=== PATIENT | female | born 1965 | race African-American/Black ===

== ENCOUNTER 2025-05-28 13:56 | Outpatient (AMB) | payer OTHER, SELFPAY ==
--- NOTE | 2025-05-28 13:59 | A.OFFVIS_ITS ---
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 Allergies atenolol Allergy (Unknown, Verified 05/28/25 14:06) Unknown erythromycin base Allergy (Unknown, Verified 05/28/25 14:06) Unknown morphine Allergy (Unknown, Verified 05/28/25 14:06) Unknown naproxen (From Naprosyn) Allergy (Unknown, Verified 05/28/25 14:06) Unknown Medication List - Last Reconciled 05/28/25 by Nakita Rogers CNP acetaminophen-codeine 300-30 mg 1 - 2 tabs PO Q8H PRN 30 days amitriptyline 100 mg PO BEDTIME erenumab-aooe (Aimovig Autoinjector) 70 mg subcut QMONTH folic acid 1 mg PO DAILY metoprolol tartrate 25 mg PO BID omeprazole 20 mg PO BID oxcarbazepine 600 mg PO BID quetiapine (Seroquel) 400 mg PO BEDTIME temazepam 30 mg PO BEDTIME PRN topiramate 200 mg PO BID trazodone 200 mg PO BEDTIME warfarin 2.5 mg PO DAILY HPI Comments Details: Tingling in feet up to ankles bilaterally with burning-type pain since 01/2025. Her sugar is not under control. Aimovig was helping with migraines. Headaches were down to about 2x/week. They were less severe and did not last as long. Tylenol #3 as needed helped. Numbness and tingling in feet up to ankles bilaterally with purning-type pain since 01/2025 was unchanged. Fasting blood sugar could range between 60s-200s. No falls. Sleep was not so good, trouble falling and staying asleep. Sleep was sometimes disrupted by pain in feet. Mood was okay. Previously, she was getting headache about 3-4x/ week with pressure behind eyes for 2-3 hrs. Headaches were associated with photophobia, sonophobia, nausea, and sometimes vomiting. Using Tylenol #3 as needed which helpe within 60-90 minutes. No seizures. She has a history of depression and psychiatric problems as well as migraines and some dependence on pain medications. [facility] Medical History (Updated 05/28/25 @ 14:03 by Nakita Rogers CNP) Diabetic peripheral neuropathy Hypertension JULISSA on CPAP Pulmonary embolism Neuropathy JULISSA (obstructive sleep apnea) Depression Migraine Review of Systems Const Denies chills, Denies daytime sleepiness, Reports difficulty sleeping, Denies fatigue, Denies fever(s), Denies frequent falls, Reports headache(s), Denies increased appetite, Denies poor appetite, Denies snoring, Denies weakness, Denies weight gain and Denies weight loss Eyes Denies loss of vision ENT Denies vertigo, Denies dizziness, Reports headache(s) and Denies neck pain Card Denies chest pain at rest, Denies chest pain with activity, Denies syncope, Denies leg edema, Denies palpitations, Denies dyspnea and Denies dyspnea on ex ertion Resp Denies cough, Denies dyspnea, Denies dyspnea on exertion and Denies snoring GI Denies abdominal pain, Denies constipation, Denies heartburn, Denies diarrhea and Denies nausea Denies urinary frequency, Denies urinary incontinence and Denies urinary urgency Musc Denies abnormal gait, Denies back pain, Denies myalgias, Denies arthralgias, Denies neck pain, Reports numbness and Reports tingling Neuro Denies abnormal gait, Denies vertigo, Denies dizziness, Denies syncope, Denies frequent falls, Reports headache(s), Denies lack of coordination, Denies loss of vision, Denies memory loss, Reports numbness, Denies Other visual disturbances, Denies restless legs, Denies seizure-like activity, Reports tingling, Denies paresthesias, Denies tremor(s) and Denies weakness Psych Denies anxiety, Reports depression, Denies auditory hallucinations, Denies memory loss and Denies visual hallucinations Endo Denies fatigue and Denies palpitations Physical Exam Const Other: General Appearance:? normal, in no acute distress. Heart:? S1, S2 normal, no murmurs. Lungs:? clear anteriorly and posteriorly. Musculoskeletal:? normal. Extremities:? no edema. Psych:? alert, oriented, cognitive function intact, cooperative with exam. 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 KJ, AJ 0-1+ Mental Status: alert and oriented X 3. Normal attention, orientation, memory, and affect. Cranial Nerves: Pupils are equal, round, and reactive to light. External ocular muscles are intact. Visual nguyen are full, no ptosis. Face is symmetrical, no facial weakness or droop. Facial sensations are normal. Tongue protrudes in midline. Palate elevates symmetrically. Shoulder shrugging is normal Motor Examination: As above, otherwise normal muscle tone, bulk and strength. No atrophy or fasciculations. No drift of the extended upper extremities. DTR 2+. Plantars are flexor. Sensory Exam: Normal light touch, temperature, pinprick, vibration, and joint- position sensations. Rhomberg sign is absent. Coordination: No ataxia. No titubation. Gait Exam: Within normal limits. Cerebellar Signs: [id number] is okay. Extrapyramidal System: No tremor, rigidity with normal facial expressions. No bradykinesia. No bradyphrenia. Normal arm swing and posture. No propulsion or retropulsion. Speech: Normal. No dysphasia or dysarthria. Results Reviewed Results Reviewed: 03/12/25 NCV/EMG LE Sensory greater than motor axonal neuropathy, significantly worse compared to the study done in 2013. EMG in the left L4-S1 innervated muscles is consistent with chronic neuropathic changes. Assessment & Plan Assessment & Plan (1) Migraine: Code(s): G43.909 - Migraine, unspecified, not intractable, without status migrainosus Category: Medical Qualifiers: Migraine type: unspecified Status migrainosus presence: without status migrainosus Intractability: not intractable Qualified Code(s): G43.909 - Migraine, unspecified, not intractable, without status migrainosus Plan: Continue Aimovig 70mg/mL 1mL subcutaneous monthly. Continue topiramate 100mg 2 tablets twice a day. Continue amitriptyline 100mg 1 tablet at bedtime. Continue acetaminophen-codeine #3 300-30mg 1-2 tablets as needed q8h for headache #30 for 30 days (2) Diabetic peripheral neuropathy: Code(s): E11.42 - Type 2 diabetes mellitus with diabetic polyneuropathy Category: Medical Plan: NCV/EMG results reviewed. Start gabapentin 300mg 1 capsule at bedtime, use/side effects reviewed. Control blood sugar, stay physically active. Medications: New gabapentin 300 mg PO BEDTIME 30 caps 2RF 30 days amitriptyline 100 mg PO BEDTIME 90 tabs 1RF 90 days erenumab-aooe (Aimovig Autoinjector) 70 mg subcut QMONTH 1 mL 5RF 30 days Coding Level of Care Code Est Pt Level 4 (27804) Diagnoses Migraine without status migrainosus, not intractable, unspecified migraine type G43.909 Migraine type: unspecified Status migrainosus presence: without status migrainosus Intractability: not intractable Diabetic peripheral neuropathy E11.42
--- OUTSIDE RECORDS SUMMARY | 2025-05-28 14:20 | XMS_ITS | Continuity of Care Document ---
Author Organization [facility] Address [address] [place] [address] Insurance Providers Payer Plan Claims Address Claims Phone Policy Number Group Number Relation Employer Guarantor Name Guarantor Guarantor Address Guarantor Phone MEDIC ARE [employer] [address], [place] [address] tel:[phone] Self Magdalena Mejia [address] [place] [address] [facility] [address], [place] [address] [id number] Self Magdalena Mejia [address] [place] [address] COMMO [facility] [employer] [facility] MEDIC ARE [address], [place] [address] ICO [id number] Self Magdalena Mejia [address] [place] [address] Problems Unknown Problems Results Test Result Date/Time Value / Unit Interp. Refere sce Range Lab Report Magdalena [email or web address] Allergies, adverse reactions, alerts No known allergies and adverse reactions Medications No administered medications reported Vital Signs No vital signs reported Social History No smoking Hx information available
== END 2025-05-28 14:23 | disposition home or self-care (01) ==
LOC: HO.HSM 13:57
PROVIDERS: PCP Physician Assistant Medical; Referring Provider Physician Assistant Medical; Visit Provider Registered Nurse
DX: G43.909 Migraine, unspecified, not intractable, without status migrainosus (principal); E11.42 Type 2 diabetes mellitus with diabetic polyneuropathy
CPT/HCPCS: 99214

== ENCOUNTER → 2025-05-28 13:56 | Outpatient (BNVA) | payer OTHER, SELFPAY | PROVIDERS: PCP Physician Assistant Medical; Referring Provider Physician Assistant Medical; Visit Provider Registered Nurse | DX: E11.42 Type 2 diabetes mellitus with diabetic polyneuropathy (principal); G43.909 Migraine, unspecified, not intractable, without status migrainosus | CPT/HCPCS: 99212 ==

== ENCOUNTER 2025-09-08 09:41 | Outpatient (AMB) | payer OTHER, SELFPAY ==
--- NOTE | 2025-09-08 09:42 | MHC.OFFVIS ---
Intake Visit Reasons: 3M NEWSOME, DPN Allergies atenolol Allergy (Unknown, Verified 09/08/25 09:43) Unknown erythromycin base Allergy (Unknown, Verified 09/08/25 09:43) Unknown morphine Allergy (Unknown, Verified 09/08/25 09:43) Unknown naproxen (From Naprosyn) Allergy (Unknown, Verified 09/08/25 09:43) Unknown Medication List - Last Reconciled 09/08/25 by Nakita Rogers CNP acetaminophen-codeine 300-30 mg 1 - 2 tabs PO Q8H PRN 30 days apixaban (Eliquis) 5 mg PO BID erenumab-aooe (Aimovig Autoinjector) 70 mg subcut QMONTH 30 days folic acid 1 mg PO DAILY gabapentin 100 mg PO BEDTIME 30 days metoprolol tartrate 25 mg PO BID omeprazole 20 mg PO BID oxcarbazepine 600 mg PO BID quetiapine (Seroquel) 400 mg PO BEDTIME temazepam 30 mg PO BEDTIME PRN topiramate 200 mg PO BEDTIME trazodone 200 mg PO BEDTIME HPI Comments Details: She had GI side effects with gabapentin 300mg and dose was reduced to 100mg at bedtime, no side effects. Burning-type pain in feet was better at night with gabapentin, but was happening during the day. Numbness and tingling in feet up to ankles bilaterally was unchanged. Walking with cane, no falls. Migraines were better with Aimovig. She was getting about 2-3 headaches/week. Topiramate was ordered 200mg twice a day, but she was taking topiramate 200mg at bedtime only. [facility]mitriptyline was apparently stopped at [facility] in 09/2024 and she has not taken medication since then. Tylenol #3 as needed helped. Sleep was still not so good. Blood sugar was apparently getting better. Tingling in feet up to ankles bilaterally with burning-type pain since 01/2025. Her sugar is not under control. Fasting blood sugar could range between 60s-200s. Aimovig was helping with migraines. Headaches were less severe and did not last as long. Tylenol #3 as needed helped. No falls. Sleep was not so good, and was sometimes disrupted by pain in feet. Previously, she was getting headache about 3-4x/ week with pressure behind eyes for 2-3 hrs. Headaches were associated with photophobia, sonophobia, nausea, and sometimes vomiting. Using Tylenol #3 as needed which helpe within 60-90 minutes. No seizures. She has a history of depression and psychiatric problems as well as migraines and some dependence on pain medications. [facility] Medical History (Updated 05/28/25 @ 14:03 by Nakita Rogers, MAR[place]) Diabetic peripheral neuropathy Hypertension JULISSA on CPAP Pulmonary embolism Neuropathy JULISSA (obstructive sleep apnea) Depression Migraine Review of Systems Const Denies chills, Denies daytime sleepiness, Reports difficulty sleeping, Denies fatigue, Denies fever(s), Denies frequent falls, Reports headache(s), Denies increased appetite, Denies poor appetite, Denies snoring, Denies weakness, Denies weight gain and Denies weight loss Eyes Denies loss of vision ENT Denies vertigo, Denies dizziness, Reports headache(s) and Denies neck pain Card Denies chest pain at rest, Denies chest pain with activity, Denies syncope, Denies leg edema, Denies palpitations, Denies dyspnea and Denies dyspnea on exertion Resp Denies cough, Denies dyspnea, Denies dyspnea on exertion and Denies snoring GI Denies abdominal pain, Denies constipation, Denies heartburn, Denies diarrhea and Denies nausea Denies urinary frequency, Denies urinary incontinence and Denies urinary urgency Musc Denies abnormal gait, Denies back pain, Denies myalgias, Denies arthralgias, Denies neck pain, Reports numbness and Reports tingling Neuro Denies abnormal gait, Denies vertigo, Denies dizziness, Denies syncope, Denies frequent falls, Reports headache(s), Denies lack of coordination, Denies loss of vision, Denies memory loss, Reports numbness, Denies Other visual disturbances, Denies restless legs, Denies seizure-like activity, Reports tingling, Denies paresthesias, Denies tremor(s) and Denies weakness Psych Denies anxiety, Reports depression, Denies auditory hallucinations, Denies memory loss and Denies visual hallucinations Endo Denies fatigue and Denies palpitations Physical Exam Neuro Other: Abnormal Neurological Findings:?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 KJ, AJ 0-1+. Walking with cane. Mental Status: alert and oriented X 3. Normal attention, orientation, memory, and affect. Cranial Nerves: Pupils are equal, round, and reactive to light. External ocular muscles are intact. Visual nguyen are full, no ptosis. Face is symmetrical, no facial weakness or droop. Facial sensations are normal. Tongue protrudes in midline. Palate elevates symmetrically. Shoulder shrugging is normal Motor Examination: As above, otherwise normal muscle tone, bulk and strength. No atrophy or fasciculations. No drift of the extended upper extremities. DTR 2+. Plantars are flexor. Sensory Exam: Normal light touch, temperature, pinprick, vibration, and joint-position sensations. Rhomberg sign is absent. Coordination: No ataxia. No titubation. Gait Exam: With cane. Cerebellar Signs: [id number] is okay. Extrapyramidal System: No tremor, rigidity with normal facial expressions. No bradykinesia. No bradyphrenia. Normal arm swing and posture. No propulsion or retropulsion. Speech: Normal. No dysphasia or dysarthria. Results Reviewed Results Reviewed: 03/12/25 NCV/EMG LE Sensory greater than motor axonal neuropathy, significantly worse compared to the study done in 2013. EMG in the left L4-S1 innervated muscles is consistent with chronic neuropathic changes. Assessment & Plan Assessment & Plan (1) Migraine: Code(s): G43.909 - Migraine, unspecified, not intractable, without status migrainosus Category: Medical Qualifiers: Migraine type: unspecified Status migrainosus presence: without status migrainosus Intractability: not intractable Qualified Code(s): G43.909 - Migraine, unspecified, not intractable, without status migrainosus Plan: Topiramate was prescribed as 100mg 2 tablets twice a day, however she was taking topiramate 100mg 2 tablet at bedtime only and will decrease dose to reflect this. She apparently has not taken amitriptyline 100mg at bedtime since medication was apparently discontinued at [facility] nearly a year ago in 09/2024 and medication was discontinued. Continue Aimovig 70mg/mL 1mL subcutaneous monthly. Continue topiramate 100mg 2 tablets at bedtime. Continue acetaminophen-codeine #3 300-30mg 1-2 tablets as needed q8h for headache #30 for 30 days (2) Diabetic peripheral neuropathy: Code(s): E11.42 - Type 2 diabetes mellitus with diabetic polyneuropathy Category: Medical Plan: She had GI side effects with gabapentin 300mg at bedtime and dose was reduced to 100mg at bedtime, no side effects. Increase gabapentin 100mg 1 capsule twice a day. Control blood sugar, stay physically active. Follow up in 3 months or sooner as needed. Medications: New gabapentin 100 mg PO BID 180 caps 0RF 90 days Changed From topiramate 200 mg PO BEDTIME To topiramate 200 mg (2 x 100 mg) PO BEDTIME 180 tabs 1RF 90 days Refilled erenumab-aooe (Aimovig Autoinjector) 70 mg subcut QMONTH 1 mL 5RF 30 days Discontinued gabapentin Discontinued Reason: Doctor's Order 100 mg PO BEDTIME 30 days 30 caps 2RF Coding Level of Care Code Est Pt Level 4 (88811) Diagnoses Migraine without status migrainosus, not intractable, unspecified migraine type G43.909 Migraine type: unspecified Status migrainosus presence: without status migrainosus Intractability: not intractable Diabetic peripheral neuropathy E11.42
--- OUTSIDE RECORDS SUMMARY | 2025-09-08 11:20 | XMS_ITS | Clinical Summary ---
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 Active folic acid (FOLVITE) 1 mg tablet Take 1 tablet (1 mg total) by mouth 1 (one) time each day. Active multivitamin with minerals tablet Take 1 tablet by mouth 1 (one) time each day. Active amantadine (SYMMETREL) 100 mg capsule Take 1 capsule (100 mg total) by mouth 2 (two) times a day. Active acetaminophen (TYLENOL) 500 mg tablet Take 2 tablets (1,000 mg total) by mouth every 8 (eight) hours if needed for mild pain. Active acetaminophen-co deine (TYLENOL #3) 300-30 mg per tablet Take 2 tablets by mouth every 8 (eight) hours if needed for moderate pain. Max Daily Amount: 6 tablets Active albuterol HFA (PROAIR HFA ; PROVENTIL HFA ; VENTOLIN HFA) 90 mcg/actuation inhaler Inhale 2 puffs by mouth every 6 (six) hours if needed for wheezing. Active aspirin 81 mg chewable tablet Chew 1 tablet (81 mg total) 1 (one) time each day. Active atorvastatin (LIPITOR) 20 mg tablet Take 1 tablet (20 mg total) by mouth at bedtime. Active baclofen (LIORESAL) 10 mg tablet Take 0.5 tablets (5 mg total) by mouth 3 (three) times a day. Active fluticasone furoate (Arnuity Ellipta) 100 mcg/actuation blister with device inhaler Inhale 1 puff by mouth 1 (one) time each day. Active fluticasone propionate (FLONASE) 50 mcg/actuation nasal spray Administer 1 spray into each nostril 1 (one) time each day. Shake gently. Before first use, prime pump. After use, clean tip and replace cap. Active hydrOXYzine HCL (ATARAX) 25 mg tablet Take 1 tablet (25 mg total) by mouth 4 (four) times a day. Active insulin glargine (LANTUS) 100 unit/mL injection Inject 10 Units under the skin at bedtime. Active insulin lispro 100 unit/mL injection Inject under the skin 3 (three) times a day before meals. -Administer within 15 minutes of a meal Active levothyroxine (SYNTHROID, LEVOTHROID) 125 mcg tablet Take 1 tablet (125 mcg total) by mouth 1 (one) time each day before breakfast. Active lisinopril (PRINIVIL,ZESTRI L) 40 mg tablet Take 1 tablet (40 mg total) by mouth 1 (one) time each day. Active LORazepam (ATIVAN) 0.5 mg tablet Take 1 tablet (0.5 mg total) by mouth every 8 (eight) hours if needed for anxiety. Active metoprolol tartrate (LOPRESSOR) 25 mg tablet Take 1 tablet (25 mg total) by mouth 2 (two) times a day. Active omeprazole (PriLOSEC) [address] capsule Take 1 capsule (20 mg total) by mouth 2 (two) times a day. Do not crush or chew. Active ondansetron (ZOFRAN) 4 mg tablet Take 1 tablet (4 mg total) by mouth every 8 (eight) hours if needed for nausea or vomiting. Active OXcarbazepine (TRILEPTAL) 600 mg tablet Take 1 tablet (600 mg total) by mouth 2 (two) times a day. Active amitriptyline (ELAVIL) 100 mg tablet Take 1 tablet (100 mg total) by mouth at bedtime. at bedtime 07/26/20 19 Active cetirizine (ZyrTEC) 10 mg tablet Take 1 tablet (10 mg total) by mouth 1 (one) time each day. 11/19/19 24 Active Aimovig Autoinjector 70 mg/mL injection INJECT 1ML (70MG) SUBCUTANEOUSLY EVERY 30 DAYS 06/21/20 22 Active gabapentin (NEURONTIN) 100 mg capsule Take 1 capsule (100 mg total) by mouth at bedtime. 07/23/20 25 Active metFORMIN XR (GLUCOPHAGE-XR) 500 mg 24 hr tablet Take 2 tablets (1,000 mg total) by mouth 1 (one) time each day with dinner. Active multivitamin tablet Take 1 tablet by mouth 1 (one) time each day. 07/02/20 25 Active temazepam (RESTORIL) 15 mg capsule Take 1 capsule (15 mg total) by mouth at bedtime as needed. at bedtime 02/29/20 16 Active topiramate (TOPAMAX) 100 mg tablet Take 2 tablets (200 mg total) by mouth 2 (two) times a day. 06/21/20 22 Active traZODone (DESYREL) 100 mg tablet Take 2 tablets (200 mg total) by mouth at bedtime. at bedtime 06/21/20 22 Active QUEtiapine XR (SEROquel XR) 400 mg 24 hr tablet Take 1 tablet (400 mg total) by mouth at bedtime. 07/23/20 25 Active QUEtiapine (SEROquel) 400 mg tablet Take 1 tablet (400 mg total) by mouth at bedtime. 025 Discontin ued(Alter taisha therapy) Active Problems Problem Noted Date Diagnosed Date Syncope 08/15/2025 Encounters Date Type Department Care Team Description 08/15/2025 5:15 PM EDT - 08/15/2025 7:16 PM EDT Emergency [facility] Emergency [address] [place] [address] Jose Lopez MD Syncope, unspecified syncope type (Primary Dx); Epigastric pain Discharge Disposition: Home or Self Care 08/14/2025 10:40 PM EDT - 08/15/2025 2:00 PM EDT Hospital Encounter [facility] Unit [address] [place] [address] Alejandro Church MD Santoyo-Pacheco, Omar D, MD Bukalo, Nermina, MD Syncope, unspecified syncope type (Primary Dx); TIA (transient ischemic attack) Discharge Disposition: Left Against Medical Advice 07/11/2025 8:11 PM EDT - 07/11/2025 11:43 PM EDT Emergency [facility] Emergency [address] [place] [phone] Catrachita Kat MD Nausea and vomiting, unspecified vomiting type (Primary Dx); Abnormal abdominal CT scan; Pancreatic duct dilated; Hypoglycemia Discharge Disposition: Home or Self Care 06/18/2025 9:58 AM EDT - 06/18/2025 11:18 AM EDT Emergency [facility] Emergency [address] [place] [phone] Fazal Sandoval MD Contusion of left great toe without damage to nail, initial encounter (Primary Dx) Discharge Disposition: Home or Self Care from Last 3 Months Medical History Medical History Date Comments Hypertension Diabetes mellitus ([facility] V 24, [facility] V28) Hypothyroid Hyperlipemia Pulmonary embolism ([facility]/HCC V24, [facility]/HCC V28) Schizoaffective disorder ([facility] S/HCC V24, [facility]/HCC V28) 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 Patient declined 08/15/2025 Food Access & Nutrition Answer Date Rec orded Do you have access to a vari ety of food including fruits and vegetables? Patient declined 08/15/2025 Health Literacy Answer Date Recorded How often do you need to hav e someone help you when you read instructions, pamphlets, or other written material from your doctor or pharmacy? Patient declined 08/15/2025 Caregiver: How often do you need to have someone help you when you read instructions, pamphlets, or other written material from your doctor or pharmacy? Not on file 025 Financial Risk Answer Date Recorded How hard is it for you to pa y for the very basics like food, housing, medical care, and air conditioning / heating? Patient declined 08/15/2025 Transportation Answer Date Recorded Has the lack of transportati on kept you from meetings, work, or from getting things needed for daily living? Patient declined 08/15/2025 Has the lack of transportati on kept you from medical appointments or from getting medications? Patient declined 08/15/2025 Social Isolation Answer Date Recorded How often do you feel lonely or isolated from those around you? Patient declined 08/15/2025 Food Risk Answer Date Recorded Within the past 12 months we worried whether our food would run out before we got money to buy more. Patient declined 025 Within the past 12 months th e food we bought just didn't last and we didn't have money to get more. Patient declined 07/18 Dependent Care Answer Date Recorded Do you need help finding or paying for care for your loved ones. For example, child therapist or elderly care for an older adult? Patient declined 08/15/2025 Education Answer Date Recorded Do you think completing more education or training, like finishing a GED, going to college, or learning a trade, would be helpful for you? Patient declined 08/15/2025 Employment and Income Answer Date Recor ded During the last four weeks, have you been actively looking for work? Patient declined 08/15/2025 Living Situation Answer Date Recorded What is your living situation? Unrecognized valu e 08/15/2025 Interpersonal Safety Answer Date Record ed Physical Abuse Unrecognized value 08/15/2025 Verbal Abuse Unrecognized value 08/15/2025 Comments No Sex and Gender Information Value Date Recorded Sex Assigned at Female 09/16/2024 10:48 AM EST Legal Sex Female 10:45 AM EST Gender Identity Female 09/16/2024 10:48 AM EST Sexual Orientation Straight 09/16/2024 12 :51 PM EST Obstetrics History Last Filed Vital Signs Vital Sign Reading Time Taken Comments Blood Pressure 174/85 08/15/2025 5:22 PM EDT Pulse 100 08/15/2025 5:22 PM EDT Temperature 36.6 C (97.9 F) 08/15/2025 5:22 PM EDT Respiratory Rate 17 08/15/2025 5:22 PM EDT Oxygen Saturation 100% 08/15/2025 5:22 PM EDT Inhaled Oxygen Concentration - - Weight 81.6 kg (180 lb) 08/15/2025 3:04 PM EDT Height 160 cm (5' 3 ) 08/15/2025 3:04 PM EDT Body Mass Index 31.89 08/15/2025 3:04 PM EDT Plan of Treatment Health Maintenance Due Date Last Done Comments Breast Cancer Screening 1965 Colorectal Cancer Screening: Colonoscopy 1965 Diabetes: Annual Foot Exam 1975 Diabetes: Annual Retina Eye Exam 1975 Cervical Cancer Screening: Pap Smear 1986 RSV Immunization Adult Patients (1 - Risk 50-74 years 1-dose series) 2015 HIV Screening 09/13/2022 Hepatitis C Screening 09/13/2022 Medicare Annual Wellness Visit 09/13/2022 Diabetes: Annual Urine Albumin-Creatinine Ratio (uACR) 09/16/2024 Depression Screening 10/16/2024 COVID-19 Vaccine ( season) 2025 07/20/2024, 08/03/2023, 04/26/2022, Additional history exists Influenza Vaccine (#1) 2025 , 07/19/2023, 07/21/2022, Additional history exists Diabetes: Blood Sugar Control Test (HGBA1C) 02/12/2026 08/14/2025 Diabetes: Annual GFR (Glomerular Filtration Rate) 08/15/2026 08/15/2025, 08/14/2025, 07/11/2025, Additional history exists Hypertension/CHF/CAD Annual BMP Blood Test 08/15/2026 08/15/2025, 08/14/2025, 07/11/2025, Additional history exists Social Influencers of Health Screening 08/15/2026 08/15/2025 DTaP,Tdap,and Td Vaccines (4 - Td or Tdap) 09/03/2029 09/03/2019, 08/04/2009, 11/16/1998 Cholesterol Screening (Lipid Panel) 08/14/2030 08/14/2025 Hepatitis B Vaccines Completed 10/18/2022, 08/11/2022, 09/03/2020 Hepatitis A Vaccines Aged Out 05/18/2023, 01/15/20 05 No longer eligible based on patient's age to complete this topic Meningococcal ACWY Vaccine Aged Out 08/26/2024 N o longer eligible based on patient's age to complete this topic Meningococcal B Vaccine Aged Out 08/26/2024 No l onger eligible based on patient's age to complete this topic Pneumococcal Vaccine: 50+ Years Completed 08/26/2024, 07/20/2024, 08/03/2023, Additional history exists Zoster Vaccines Completed 10/24/2024, 07/20/2024 HIB Vaccines Aged Out No longer eligi ble based on patient's age to complete this topic HPV Vaccines Aged Out No longer eligi ble based on patient's age to complete this topic IPV Vaccines Aged Out No longer eligi ble based on patient's age to complete this topic MMR Vaccines Aged Out No longer eligi ble based on patient's age to complete this topic RSV Immunization Patients Under 20 months Aged Out No longer eligible based on patient's age to complete this topic Varicella Vaccines Aged Out No longer eligible based on patient's age to complete this topic Procedures Procedure Name Priority Date/Time Associated Diagnosis Comments ECG ANNOTATED 08/19/2025 POCT GLUCOSE BLOOD Routine 08/15/2025 12 :04 PM EDT POCT GLUCOSE BLOOD Routine 08/15/2025 8: 47 AM EDT MR BRAIN WO CONTRAST STAT 08/15/2025 8:06 AM EDT LT BLUE - NA CITRATE Routine 08/15/2025 5:40 AM EDT EXTRA TUBES Routine 08/15/2025 5:40 AM EDT CBC WITH AUTO DIFFERENTIAL Routine 08/15/2025 5:40 AM EDT CBC AND DIFFERENTIAL Routine 08/15/2025 5:40 AM EDT TROPONIN I HIGH SENSITIVITY Routine 08/15/2025 5:39 AM EDT PHOSPHORUS Routine 08/15/2025 5:39 AM EDT MAGNESIUM Routine 08/15/2025 5:39 AM EDT BASIC METABOLIC PANEL Routine 08/15/2025 5:39 AM EDT ECG 12-LEAD STAT 08/15/2025 3:40 AM EDT URINALYSIS WITH REFLEX MICROSCOPIC STAT 08/15/2025 3:36 AM EDT URINALYSIS WITH REFLEX MICROSCOPIC STAT 08/15/2025 3:36 AM EDT OXYGEN THERAPY, ADULT Routine 08/15/2025 1:32 AM EDT RECHECK ABORH Routine 08/15/2025 12:07 AM EDT TROPONIN I HIGH SENSITIVITY STAT 08/15/2025 12:07 AM EDT TYPE AND SCREEN STAT 08/15/2025 12:07 AM EDT ECG 12-LEAD Routine 08/14/2025 11:[address] ANGIO HEAD/NECK STROKE WO AND/OR W CONTRAST STAT 08/14/2025 11:[address] HEAD STROKE WO CONTRAST STAT 08/14/2025 11:06 PM EDT D-DIMER Add-On 08/14/2025 10:55 PM EDT LIPID PANEL WITH REFLEX TO DIRECT LDL Add-On 08/14/2025 10:55 PM EDT HEMOGLOBIN A1C Add-On 08/14/2025 10:55 PM EDT CBC WITH AUTO DIFFERENTIAL STAT 08/14/2025 10:55 PM EDT TROPONIN I HIGH SENSITIVITY STAT 08/14/2025 10:55 PM EDT MAGNESIUM STAT 08/14/2025 10:55 PM EDT ACTIVATED PARTIAL THROMBOPLASTIN TIME STAT 08/14/2025 10:55 PM EDT PROTHROMBIN TIME WITH INR STAT 08/14/2025 10:55 PM EDT CBC AND DIFFERENTIAL STAT 08/14/2025 10:55 PM EDT BASIC METABOLIC PANEL STAT 08/14/2025 10:55 PM EDT POCT GLUCOSE BLOOD Routine 08/14/2025 10 :39 PM EDT POCT GLUCOSE BLOOD Routine 07/11/2025 10 :[address] ABDOMEN PELVIS W CONTRAST STAT 07/11/2025 9:18 PM EDT POCT GLUCOSE BLOOD Routine 07/11/2025 7: 28 PM EDT US ABDOMEN LIMITED STAT 07/11/2025 5: 55 PM EDT BILIRUBIN, DIRECT STAT Add-on 07/11/2025 4:3 5 PM EDT CBC WITH AUTO DIFFERENTIAL STAT 07/11/2025 4:35 PM EDT VENOUS BLOOD GAS STAT 07/11/2025 4:35 PM EDT BETA HYDROXYBUTYRATE STAT 07/11/2025 4:35 PM EDT OSMOLALITY STAT 07/11/2025 4:35 PM EDT MAGNESIUM STAT 07/11/2025 4:35 PM EDT LIPASE STAT 07/11/2025 4:35 PM EDT COMPREHENSIVE METABOLIC PANEL STAT 07/11/2025 4:35 PM EDT CBC AND DIFFERENTIAL STAT 07/11/2025 4:35 PM EDT XR FOOT 3+ VIEWS LEFT STAT 06/18/2025 10:15 AM EDT from Last 3 Months Results * ECG-Annotated (08/19/2025) us Provider Onbase MD ECG ORDERABLES Final Result * (ABNORMAL) POCT Glucose, blood (08/15/2025 12:04 PM EDT) Only the most recent of5 resultswithin the time period is included. Glucose POCT 171(H) 70 - 100 mg/dL 08/15/2025 12:04 PM EDT [facility] Blood Capillary blood specimen / Unknown 08/15/2025 12:04 PM EDT 08/15/2025 12:05 PM EDT us Christine Gallegos MD LAB POINT OF CARE TE ST DOCKED DEVICE UNSOLICITED RESULTS Final Result [facility] [address] [place] [address], [place] [phone] * MR Brain wo Contrast (08/15/2025 8:06 AM EDT) Anatomical Region Laterality Modality Head and Neck Magnetic Resonan ce 08/15/2025 8:20 AM EDT Impressions 08/15/2025 8:23 AM EDT Normal brain MRI without contrast -------- FINAL REPORT -------- Dictated By: LAWRENCE RICKS Dictated Date: 08/15/2025 08:20 ET Assigned Physician: LAWRENCE RICKS Reviewed and Electronically Signed By: LAWRENCE RICKS Signed Date: 08/15/2025 08:23 ET Workstation ID: [id number] Transcribed By: Self Edit Transcribed Date: 08/15/2025 08:20 ET Narrative 08/15/2025 8:23 AM EDT PROCEDURE: Brain MRI INDICATION: Pain, weakness, stroke TECHNIQUE: Multiplanar, multisequence MRI of the brain Without contrast. COMPARISON: CT and CTA 08/14/2025 FINDINGS: No acute infarct, mass effect, or intracranial hemorrhage. Brain parenchyma is normal in signal. No abnormal intracranial susceptibility artifact. Sella and foramen magnum are normal. Ventricles, sulci, and cisterns are normal in size and configuration. No hydrocephalus. Major intracranial arterial flow voids are normal. Intracranial arterial vasculature is better assessed on recent CTA. Scattered mucosal thickening throughout the ethmoid air cells. Mastoid air cells are clear. Remainder the sinuses are clear. Bilateral lens implants. Orbits and extracranial soft tissues are otherwise within normal limits. Calvarium is normal. Procedure Note Lawrence Ricks MD - 08/15/2025 PROCEDURE: Brain MRI INDICATION: Pain, weakness, stroke TECHNIQUE: Multiplanar, multisequence MRI of the brain Without contrast. COMPARISON: CT and CTA 08/14/2025 FINDINGS: No acute infarct, mass effect, or intracranial hemorrhage. Brain parenchyma is normal in signal. No abnormal intracranialsusceptibility artifact. Sella and foramen magnum are normal. Ventricles, sulci, and cisterns are normal in size and configuration. Nohydrocephalus. Major intracranial arterial flow voids are normal. Intracranial arterialvasculature is better assessed on recent CTA. Scattered mucosal thickening throughout the ethmoid air cells. Mastoidair cells are clear. Remainder the sinuses are clear. Bilateral lens implants. Orbits and extracranial soft tissues areotherwise within normal limits. Calvarium is normal. IMPRESSION: Normal brain MRI without contrast -------- FINAL REPORT -------- Dictated By: LAWRENCE RICKS Dictated Date: 08/15/2025 08:20 ET Assigned Physician: LAWRENCE RICKS Reviewed and Electronically Signed By: LAWRENCE RICKS Signed Date: 08/15/2025 08:23 ET Workstation ID: [id number] Transcribed By: Self Edit Transcribed Date: 08/15/2025 08:20 ET Alejandro Church MD IM MRI PROCEDURES Final Resul t * (ABNORMAL) CBC auto differential (08/15/2025 5:40 AM EDT) Only the most recent of3 resultswithin the time period is included. WBC 9.9 4.8 - 10.8 K/mcL LAB HEMETOLOGY METHOD 08/15/2025 6:00 AM [facility] RBC 4.30 3.80 - 4.80 M/[facility] LAB HEMETOLOGY METHOD 08/15/2025 6:00 AM [facility] Hemoglobin 13.0 11.5 - 16.0 g/dL LAB HEMETOLOGY METHOD 08/15/2025 6:00 AM [facility] Hematocrit 38.9 35.0 - 47.0 % LAB HEMETOLOGY METHOD 08/15/2025 6:00 AM [facility] MCV 89.6 79.0 - 98.0 FL LAB HEMETOLOGY METHOD 08/15/2025 6:00 AM [facility] MCH 30.0 27.0 - 32.0 pcg LAB HEMETOLOGY METHOD 08/15/2025 6:00 AM [facility] MCHC 33.4 32.0 - 37.0 g/dL LAB HEMETOLOGY METHOD 08/15/2025 6:00 AM [facility] RDW 13.2 11.0 - 15.0 % LAB HEMETOLOGY METHOD 08/15/2025 6:00 AM [facility] Platelets 231 130 - 400 K/mcL LAB HEMETOLOGY METHOD 08/15/2025 6:00 AM [facility] MPV 10.7 7.0 - 11.0 FL LAB HEMETOLOGY METHOD 08/15/2025 6:00 AM [facility] NRBC 0.0 <1.0 % LAB HEMETOLOGY METHOD 08/15/2025 6:00 AM [facility] NRBC Absolute 0.00 <0.10 K/mcL LAB HEMETOLOGY METHOD 08/15/2025 6:00 AM [facility] Neutrophils Relative 59.2 % LAB HEMETOLOGY METHOD 08/15/2025 6:00 AM [facility] Lymphocytes Relative 27.4 % LAB HEMETOLOGY METHOD 08/15/2025 6:00 AM [facility] Monocytes Relative 12.6 % LAB HEMETOLOGY METHOD 08/15/2025 6:00 AM [facility] Eosinophils Relative 0.1 % LAB HEMETOLOGY METHOD 08/15/2025 6:00 AM [facility] Basophils Relative 0.5 % LAB HEMETOLOGY METHOD 08/15/2025 6:00 AM [facility] Immature Granulocytes Relative 0.2 % LAB HEMETOLOGY METHOD 08/15/2025 6:00 AM [facility] Neutrophils Absolute 5.85 1.50 - 7.00 K/mcL LAB HEMETOLOGY METHOD 08/15/2025 6:00 AM [facility] Lymphocytes Absolute 2.70 1.00 - 5.00 K/mcL LAB HEMETOLOGY METHOD 08/15/2025 6:00 AM [facility] Monocytes Absolute 1.24(H) 0.20 - 1.00 K/mcL LAB HEMETOLOGY METHOD 08/15/2025 6:00 AM EDT [facility] Eosinophils Absolute 0.01 0.00 - 0.50 K/[facility] LAB HEMETOLOGY METHOD 08/15/2025 6:00 AM EDT [facility] Basophils Absolute 0.05 0.00 - 0.20 K/[facility] LAB HEMETOLOGY METHOD 08/15/2025 6:00 AM EDT [facility] Immature Granulocytes Absolute 0.02 0.00 - 0.03 K/[facility] HEMETOLOGY METHOD 08/15/2025 6:00 AM EDT [facility] Blood Venous blood specimen / Unknown Venipuncture / Unknown 08/15/2025 5:40 AM EDT 08/15/2025 5:52 AM EDT us Vincenzo Donohue MD LAB BLOOD ORDERABLES F inal Result [facility] [address] [place] [address], [place] [phone] * Light blue tube (08/15/2025 5:40 AM EDT) Extra Tube Hold for add-ons. 08/15/2025 7:01 AM EDT [facility] Comment:Auto resulted. Blood Venous blood specimen / Unknown Venipuncture / Unknown 08/15/2025 5:40 AM EDT 08/15/2025 5:52 AM EDT us Vincenzo Donohue MD LAB BLOOD ORDERABLES F inal Result [facility] [address] [place] [address], [place] [phone] * (ABNORMAL) Troponin I high sensitivity (08/15/2025 5:39 AM EDT) Only the most recent of3 resultswithin the time period is included. [facility] High Sensitivity Troponin I 78(H) <=54 ng/L LAB CHEMISTRY METHOD 08/15/2025 6:22 AM EDT [facility] Blood Venous blood specimen / Unknown Venipuncture / Unknown 08/15/2025 5:39 AM EDT 08/15/2025 5:53 AM EDT Narrative [facility] - 08/15/2025 6:22 AM EDT High levels of biotin in samples may falsely decrease hsTroponin values. Use caution when interpreting hsTroponin results in patients taking biotin who exhibit renal impairment (eGFR <60) or in patients taking more than 20 mg/day of biotin. us Vincenzo Donohue MD LAB BLOOD ORDERABLES F inal Result [facility] [address] [place] [address], [place] [phone] * Phosphorus (08/15/2025 5:39 AM EDT) [facility] Phosphorus 2.9 2.5 - 4.5 mg/dL LAB CHEMISTRY METHOD 08/15/2025 6:17 AM EDT [facility] Blood Venous blood specimen / Unknown Venipuncture / Unknown 08/15/2025 5:39 AM EDT 08/15/2025 5:52 AM EDT us Vincenzo Donohue MD LAB BLOOD ORDERABLES F inal Result [facility] [address] [place] [address], * Magnesium (08/15/2025 5:39 AM EDT) Only the most recent of3 resultswithin the time period is included. [facility] Magnesium 2.0 1.9 - 2.6 mg/dL LAB CHEMISTRY METHOD 08/15/2025 6:17 AM [facility] Blood Venous blood specimen / Unknown Venipuncture / Unknown 08/15/2025 5:39 AM EDT 08/15/2025 5:52 AM EDT us Vincenzo Donohue MD LAB BLOOD ORDERABLES F inal Result [facility] [address] [place] [address], [place] [phone] * (ABNORMAL) Basic metabolic panel (08/15/2025 5:39 AM EDT) Only the most recent of2 resultswithin the time period is included. Sodium 141 133 - 145 mmol/L LAB CHEMISTRY METHOD 08/15/2025 6:17 AM [facility] Potassium 3.5 3.5 - 5.5 mmol/L LAB CHEMISTRY METHOD 08/15/2025 6:17 AM [facility] Chloride 106 96 - 110 mmol/L LAB CHEMISTRY METHOD 08/15/2025 6:17 AM [facility] CO2 25 21 - 32 mmol/L LAB CHEMISTRY METHOD 08/15/2025 6:17 AM [facility] Anion Gap 10 3 - 11 LAB CHEMISTRY METHOD 08/15/2025 6:17 AM [facility] Glucose 204(H) 70 - 100 mg/dL LAB CHEMISTRY METHOD 08/15/2025 6:17 AM [facility] BUN 8 5 - 25 mg/dL LAB CHEMISTRY METHOD 08/15/2025 6:17 AM [facility] Creatinine 0.97 0.50 - 1.10 mg/dL LAB CHEMISTRY METHOD 08/15/2025 6:17 AM [facility] [facility] eGFR 67 >=60 mL/min/1. 73m2 LAB CHEMISTRY METHOD 08/15/2025 6:17 AM EDT [facility] Comment:Calculation based on the Chronic Kidney Disease Epidemiology Collaboration (CKD-EPI) equation refit without adjustment for race. BUN/Creatinine Ratio 8.2 LAB CHEMISTRY METHOD 08/15/2025 6:17 AM EDT [facility] Calcium 9.7 8.5 - 10.5 mg/dL LAB CHEMISTRY METHOD 08/15/2025 6:17 AM EDT [facility] Blood Venous blood specimen / Unknown Venipuncture / Unknown 08/15/2025 5:39 AM EDT 08/15/2025 5:52 AM EDT us Vincenzo Donohue MD LAB BLOOD ORDERABLES F inal Result [facility] [address] [place] [address], [place] [phone] * Electrocardiogram, 12 lead (08/15/2025 3:40 AM EDT) Only the most recent of2 resultswithin the time period is included. Ventricular Rate ECG 131 BPM GEMUSE Atrial Rate 131 BPM GEMUSE P-R Interval 96 ms GEMUSE QRS Duration 72 ms GEMUSE Q-T Interval 308 ms GEMUSE QTc 455 ms GEMUSE R [place] 29 degrees GEMUSE T [place] 60 degrees GEMUSE ECG Interpretation Sinus tachycardia with short LA Otherwise normal ECG When compared with ECG of 14-AUG-2025 23:34, T wave inversion no longer evident in Inferior leads T wave inversion less evident in Anterolateral leads Confirmed by MD Tee, [place] ([id number]) on 08/15/2025 9:12:42 PM GEMUSE 08/15/2025 3:40 AM EDT 08/15/2025 9:12 PM EDT us Alejandro Church MD ECG ORDERABLES Final Result GEMUSE * (ABNORMAL) Urinalysis with reflex microscopic (08/15/2025 3:36 AM EDT) Specific [place] Urine >1.045(H) 1.003 - 1.030 LAB URINALYSIS - AUTOMATED METHOD 08/15/2025 3:48 AM [facility] pH, Urine 6.0 5.0 - 8.0 pH LAB URINALYSIS - AUTOMATED METHOD 08/15/2025 3:48 AM [facility] Leukocytes, Urine Negative Negative LAB URINALYSIS - AUTOMATED METHOD 08/15/2025 3:48 AM [facility] Nitrite, Urine Negative Negative LAB URINALYSIS - AUTOMATED METHOD 08/15/2025 3:48 AM [facility] Protein, Urine 30(A) <=Trace mg/dL LAB URINALYSIS - AUTOMATED METHOD 08/15/2025 3:48 AM [facility] Glucose, Urine Negative Negative mg/dL LAB URINALYSIS - AUTOMATED METHOD 08/15/2025 3:48 AM [facility] Ketones, Urine 40(A) Negative mg/dL LAB URINALYSIS - AUTOMATED METHOD 08/15/2025 3:48 AM [facility] Urobilinogen , Urine 1.0 0.2 - 1.0 mg/dL LAB URINALYSIS - AUTOMATED METHOD 08/15/2025 3:48 AM [facility] Bilirubin, Urine Negative Negative LAB URINALYSIS - AUTOMATED METHOD 08/15/2025 3:48 AM [facility] Blood, Urine Negative Negative LAB URINALYSIS - AUTOMATED METHOD 08/15/2025 3:48 AM [facility] RBC, Urine 1.6 0 - 4 /HPF LAB URINALYSIS - AUTOMATED METHOD 08/15/2025 3:48 AM [facility] WBC, Urine 2.0 0 - 4 /HPF LAB URINALYSIS - AUTOMATED METHOD 08/15/2025 3:48 AM EDT [facility] Squamous Epithelial, Urine 30 0 - 60 /LPF LAB URINALYSIS - AUTOMATED METHOD 08/15/2025 3:48 AM EDT [facility] Bacteria, Urine Negative Negative /HPF LAB URINALYSIS - AUTOMATED METHOD 08/15/2025 3:48 AM EDT [facility] Hyaline Casts, Urine 4.8(H) 0 - 3 /LPF LAB URINALYSIS - AUTOMATED METHOD 08/15/2025 3:48 AM EDT [facility] Urine Urine specimen obtained by clean catch procedure / Unknown Non-blood Collection / Unknown 08/15/2025 3:36 AM EDT 08/15/2025 3:41 AM EDT us Alejandro Church MD LAB URINE ORDERABLES Final Res ult Performing Organization Address City/[facility]/ZIP Co de Phone Number [facility] [address] [place] [address], [place] [phone] * Recheck blood typing (08/15/2025 12:07 AM EDT) ABO Group O 08/15/2025 1:53 AM EDT [facility] Rh Type Positive 08/15/2025 1:53 AM EDT [facility] Blood Venous blood specimen / Unknown Venipuncture / Unknown 08/15/2025 12:07 AM EDT 08/15/2025 12:29 AM EDT us Alejandro Church MD LAB BLOOD BANK TEST ORDERABLES Final Result [facility] [address] [place] [address], [place] [phone] * Type and screen (08/15/2025 12:07 AM EDT) ABO Group O 08/15/2025 1:52 AM EDT [facility] Rh Type Positive 08/15/2025 1:52 AM EDT [facility] Antibody Screen Negative 08/15/2025 1:52 AM EDT [facility] Blood Venous blood specimen / Unknown Venipuncture / Unknown 08/15/2025 12:07 AM EDT 08/15/2025 12:29 AM EDT Alejandro Church MD LAB BLOOD BANK TEST ORDERABLES Final Result [facility] [address] [place] [address], * CT Head Stroke wo Contrast (08/14/2025 11:06 PM EDT) Anatomical Region Laterality Modality Head and Neck Computed Tomogra phy 08/14/2025 11:1 5 PM EDT Addenda Addendum by Lopez Bolton MD on 08/14/2025 11:17 PM EDT ADDENDUM: This report was discussed with ALEJANDRO CHURCH MD on Aug 14, 2025 23:16:00 EDT. This document has been electronically signed by: Anuradha Leon on 08/14/2025 23:17:05 Impressions 08/14/2025 11:15 PM EDT 1. No acute intracranial findings. This document has been electronically signed by: Lopez Bolton MD on 08/14/2025 23:15:26 Narrative 08/14/2025 11:15 PM EDT INDICATION: Stroke CT head without contrast Comparison: CT/SR - CT HEAD WO CONTRAST - 09/16/24 10:44 EST Findings: No intra-axial mass, midline shift, hydrocephalus, or acute hemorrhage. No significant atrophy-like change or white matter disease. There is no sinus or mastoid fluid. The orbits are unremarkable. There is no acute fracture. Procedure Note Lopez Bolton MD - 08/14/2025 INDICATION: Stroke CT head without contrast Comparison: CT/SR - CT HEAD WO CONTRAST - 09/16/24 10:44 EST Findings: No intra-axial mass, midline shift, hydrocephalus, or acute hemorrhage. No significant atrophy-like change or white matter disease. There is no sinus or mastoid fluid. The orbits are unremarkable. There is no acute fracture. IMPRESSION: 1. No acute intracranial findings. This document has been electronically signed by: Lopez Bolton MD on 08/14/2025 23:15:26 Alejandro Church MD IMG CT PROCEDURES Edited Resul t - Final * CT Angio Head/Neck Stroke wo and/or w Contrast (08/14/2025 11:06 PM EDT) Anatomical Region Laterality Modality Head and Neck Computed Tomogra phy 08/14/2025 11:4 2 PM EDT Impressions 08/14/2025 11:42 PM EDT Patent head and neck CTA. This document has been electronically signed by: Lopez Bolton MD on 08/14/2025 23:42:03 Narrative 08/14/2025 11:42 PM EDT INDICATION: Stroke CT angiography head and neck with contrast. 3D Postprocessing. Comparison: CT - CT ANGIO CHEST WO AND OR W CONTRAST - 11/17/24 19:49 EST Findings: Aortic arch and cervical great vessels are patent with no aneurysm, dissection, hemodynamically significant stenoses, or occlusion. Intracranial arteries are patent. No aneurysm, dissection, hemodynamically significant stenoses, or occlusion. No abnormal intracranial enhancement. The visualized thyroid gland is unremarkable. No cervical mass or fluid collection. Lung apices clear. No acute fracture. Procedure Note Lopez Bolton MD - 08/14/2025 INDICATION: Stroke CT angiography head and neck with contrast. 3D Postprocessing. Comparison: CT - CT ANGIO CHEST WO AND OR W CONTRAST - 11/17/24 19:49 EST Findings: Aortic arch and cervical great vessels are patent with no aneurysm, dissection, hemodynamically significant stenoses, or occlusion. Intracranial arteries are patent. No aneurysm, dissection,hemodynamically significant stenoses, or occlusion. No abnormal intracranial enhancement. The visualized thyroid gland is unremarkable. No cervical mass or fluid collection. Lung apices clear. No acute fracture. IMPRESSION: Patent head and neck CTA. This document has been electronically signed by: Lopez Bolton MD on 08/14/2025 23:42:03 Alejandro Church MD IMG CT PROCEDURES Final Result * (ABNORMAL) Lipid panel with reflex to direct LDL (08/14/2025 10:55 PM EDT) Cholesterol 255(H) 0 - 200 mg/dL LAB CHEMISTRY METHOD 08/15/2025 2:00 AM EDT [facility] Triglycerides 81 0 - 150 mg/dL LAB CHEMISTRY METHOD 08/15/2025 2:00 AM [facility] HDL 88 >=40 mg/dL LAB CHEMISTRY [facility] LDL Calculated 151(H) 0 - 100 mg/dL LAB CHEMISTRY METHOD 08/15/2025 2:00 AM EDT [facility] Comment:Estimated LDL Calcul ated using equation: Total cholesterol - HDL cholesterol - (Triglycerides/5) VLDL Cholesterol Miguel 16.2 mg/dL LAB CHEMISTRY METHOD 08/15/2025 2:00 AM T [facility] Non HDL Chol. (LDL+VLDL) 167(H) <145 mg/dL LAB CHEMISTRY METHOD 08/15/2025 2:00 AM EDT [facility] Chol/HDL Ratio 2.9 0.0 - 4.4 LAB CHEMISTRY METHOD 08/15/2025 2:00 AM [facility] Blood Venous blood specimen / Unknown Venipuncture / Unknown 08/14/2025 10:55 PM EDT 08/14/2025 11:11 PM EDT Vincenzo Donohue MD LAB BLOOD ORDERABLES F inal Result [facility] [address] [place] [address], [place] [phone] * Activated partial thromboplastin time (08/14/2025 10:55 PM EDT) [facility] aPTT 33.3 24.1 - 39.3 sec LAB COAGULATION METHOD 08/14/2025 11:26 PM EDT [facility] Blood Venous blood specimen / Unknown Venipuncture / Unknown 08/14/2025 10:55 PM EDT 08/14/2025 11:11 PM EDT us Alejandro Church MD LAB BLOOD ORDERABLES Final Res ult Performing Organization Address [facility]/ZIP Co de Phone Number [facility] [address] [place] [address], [place] [phone] * (ABNORMAL) Prothrombin time with INR (08/14/2025 10:55 PM EDT) [facility] Protime 16.9(H) 10.6 - 13.9 sec LAB COAGULATION METHOD 08/14/2025 11:26 PM EDT [facility] INR 1.4 LAB COAGULATION METHOD 08/14/2025 11:26 PM EDT [facility] Blood Venous blood specimen / Unknown Venipuncture / Unknown 08/14/2025 10:55 PM EDT 08/14/2025 11:11 PM EDT us Alejandro Church MD LAB BLOOD ORDERABLES Final Res ult [facility] [address] [place] [address], [place] [phone] * D-Dimer (08/14/2025 10:55 PM EDT) [facility] D-Dimer, Quant (D-DU) 215 <=230 ng/mL DDU LAB COAGULATION METHOD 08/15/2025 5:10 AM EDT [facility] Blood Venous blood specimen / Unknown Venipuncture / Unknown 08/14/2025 10:55 PM EDT 08/14/2025 11:11 PM EDT Narrative [facility] - 08/15/2025 5:10 AM EDT D-Dimer <230 ng/mL (D-Dimer units) is the threshold for exclusion of DVT/PE. D-Dimer may be elevated in: Critically ill, severely infected, trauma patients, DIC, acute CVA, acute [place], unstable angina, AF, old age, , and smoking. D-Dimer may be decreased with: Initiation of heparin therapy and oral anticoagulants. us Vincenzo Donohue MD LAB BLOOD ORDERABLES F inal Result Performing Organization Address City/[facility]/ZIP Co de Phone Number [facility] [address] [place] [address], [place] [phone] * (ABNORMAL) Hemoglobin A1c (08/14/2025 10:55 PM EDT) Hemoglobin A1C 8.0(H) <6.5 % LAB CHEMISTRY METHOD 08/15/2025 11:41 AM EDT [facility] Mean Bld Glu Estim. 183 mg/dL LAB CHEMISTRY METHOD 08/15/2025 11:41 AM EDT [facility] Blood Venous blood specimen / Unknown Venipuncture / Unknown 08/14/2025 10:55 PM EDT 08/14/2025 11:11 PM EDT us Vincenzo Donohue MD LAB BLOOD ORDERABLES F inal Result [facility] [address] [place] [address], [place] [phone] * CT Abdomen Pelvis w Contrast (07/11/2025 9:18 PM EDT) Anatomical Region Laterality Modality Body Computed Tomogra phy 07/11/2025 9:51 PM EDT Impressions 07/11/2025 9:51 PM EDT Impression: Pancreatic duct dilation Otherwise unremarkable This document has been electronically signed by: Daron Hale MD on 07/11/2025 21:51:08 Narrative 07/11/2025 9:51 PM EDT INDICATION: intermittent hypoglycemia; reported hx pancreatic mass?/insulinoma?; abd pain/nausea CT abdomen and pelvis with contrast Comparison: None provided Findings: Lung bases are clear. No acute bony abnormalities. Liver, spleen and adrenal glands unremarkable. Pancreatic duct dilated at 8 mm. No acute pancreatic abnormality. Gallbladder is within normal limits. No significant focal renal abnormalities. No renal stones or hydronephrosis. Abdominal aorta is normal in caliber. No free fluid or adenopathy in the pelvis. No diverticulitis. Appendix unremarkable. Probable uterine fibroid. No adnexal abnormality. Procedure Note Daron Hale MD - 07/11/2025 INDICATION: intermittent hypoglycemia; reported hx pancreatic mass?/insulinoma?; abd pain/nausea CT abdomen and pelvis with contrast Comparison: None provided Findings: Lung bases are clear. No acute bony abnormalities. Liver, spleen and adrenal glands unremarkable. Pancreatic duct dilated at 8 mm. No acute pancreatic abnormality. Gallbladder is within normal limits. No significant focal renal abnormalities. No renal stones or hydronephrosis. Abdominal aorta is normal in caliber. No free fluid or adenopathy in the pelvis. No diverticulitis. Appendix unremarkable. Probable uterine fibroid. No adnexal abnormality. IMPRESSION: Impression: Pancreatic duct dilation Otherwise unremarkable This document has been electronically signed by: Daron Hale MD on 07/11/2025 21:51:08 us Catrachita Kat MD IMG CT PROCEDURES Final Result * US Abdomen Limited (07/11/2025 5:55 PM EDT) Anatomical Region Laterality Modality Body Ultrasound 07/11/2025 6:12 PM EDT Impressions 07/11/2025 6:12 PM EDT Unremarkable limited abdominal ultrasound. This document has been electronically signed by: Flo Godoy MD on 07/11/2025 18:12:43 Narrative 07/11/2025 6:12 PM EDT INDICATION: RUQ abdominal pain, no prior imaging US abdomen limited Comparison: None provided Findings: Pancreas is obscured by bowel gas. IVC is partially visualized. The liver is normal in size and echotexture. There is no intrahepatic bile duct dilatation. The common duct is 3.0 mm in diameter. The gallbladder is normal. There is no sonographic Rose sign. The main portal vein is antegrade. The right kidney is 10.3 cm in length. No ascites. Procedure Note Flo Godoy MD - 07/11/2025 INDICATION: RUQ abdominal pain, no prior imaging US abdomen limited Comparison: None provided Findings: Pancreas is obscured by bowel gas. IVC is partially visualized. The liver is normal in size and echotexture. There is no intrahepatic bile duct dilatation. The common duct is 3.0 mm in diameter. The gallbladder is normal. There is no sonographic Rose sign. The main portal vein is antegrade. The right kidney is 10.3 cm in length. No ascites. IMPRESSION: Unremarkable limited abdominal ultrasound. This document has been electronically signed by: Flo Godoy MD on 07/11/2025 18:12:43 Catrachita Kat MD IMG US PROCEDURES Final Result * (ABNORMAL) Beta hydroxybutyrate (07/11/2025 4:35 PM EDT) Beta-Hydroxybu tyrate 4.4(H) 0.2 - 2.8 mg/dL LAB CHEMISTRY METHOD 07/11/2025 5:30 PM EDT [facility] Blood Venous blood specimen / Unknown Venipuncture / Unknown 07/11/2025 4:35 PM EDT 07/11/2025 4:46 PM EDT us Catrachita Kat MD LAB BLOOD ORDERABLES Final Resul t [facility] [address] [place] [address], [place] [phone] * Osmolality (07/11/2025 4:35 PM EDT) Pathologist [facility] Osmolality Bart 298 280 - 300 mOsm/kg LAB CHEMISTRY METHOD 07/11/2025 6:13 PM EDT [facility] Blood Venous blood specimen / Unknown Venipuncture / Unknown 07/11/2025 4:35 PM EDT 07/11/2025 4:46 PM EDT us Catrachita Kat MD LAB BLOOD ORDERABLES Final Resul t Performing Organization Address [facility]/ZIP Co de Phone Number [facility] [address] [place] [address], [place] [phone] * Lipase (07/11/2025 4:35 PM EDT) [facility] Lipase 13 13 - 75 unit/L LAB CHEMISTRY METHOD 07/11/2025 5:18 PM EDT [facility] Blood Venous blood specimen / Unknown Venipuncture / Unknown 07/11/2025 4:35 PM EDT 07/11/2025 4:46 PM EDT us Catrachita Kat MD LAB BLOOD ORDERABLES Final Resul t Performing Organization Address City/[facility]/ZIP Co de Phone Number [facility] [address] [place] [address], [place] [phone] * Venous blood gas (07/11/2025 4:35 PM EDT) Pathologist [facility] pH, Jameel 7.36 7.32 - 7.42 pH 07/11/2025 4:52 PM EDT [facility] pCO2, Jameel 44 41 - 51 mmHg 07/11/2025 4:52 PM EDT [facility] pO2, Jameel 35 25 - 40 mmHg 07/11/2025 4:52 PM EDT [facility] HCO3, Venous 23.0 22.0 - 26.0 mmol/L 07/11/2025 4:52 PM EDT [facility] O2 Sat, Jameel 53.3 % 07/11/2025 4:52 PM EDT [facility] Base Excess, Jameel -0.8 -2.0 - 2.0 mmol/L 07/11/2025 4:52 PM EDT [facility] Blood Venous blood specimen / Unknown Venipuncture / Unknown 07/11/2025 4:35 PM EDT 07/11/2025 4:41 PM EDT us Catrachita Kat MD LAB BLOOD ORDERABLES Final Resul t [facility] [address] [place] [address], [place] [phone] * Bilirubin, direct (07/11/2025 4:35 PM EDT) Pathologist [facility] Bilirubin, Direct <0.1 0.0 - 0.3 mg/dL LAB CHEMISTRY METHOD 07/11/2025 5:30 PM EDT [facility] Blood Venous blood specimen / Unknown Venipuncture / Unknown 07/11/2025 4:35 PM EDT 07/11/2025 4:46 PM EDT us Catrachita Kat MD LAB BLOOD ORDERABLES Final Resul t [facility] [address] [place] [address], [place] [phone] * (ABNORMAL) Comprehensive metabolic panel (07/11/2025 4:35 PM EDT) Sodium 138 133 - 145 mmol/L LAB CHEMISTRY METHOD 07/11/2025 5:30 PM EDT [facility] Potassium 3.4(L) 3.5 - 5.5 mmol/L LAB CHEMISTRY METHOD 07/11/2025 5:30 PM [facility] Chloride 107 96 - 110 mmol/L LAB CHEMISTRY METHOD 07/11/2025 5:30 PM [facility] CO2 25 21 - 32 mmol/L LAB CHEMISTRY METHOD 07/11/2025 5:30 PM [facility] Anion Gap 6 3 - 11 LAB CHEMISTRY METHOD 07/11/2025 5:30 PM [facility] Glucose 136(H) 70 - 100 mg/dL LAB CHEMISTRY METHOD 07/11/2025 5:30 PM [facility] BUN 6 5 - 25 mg/dL LAB CHEMISTRY METHOD 07/11/2025 5:30 PM [facility] Creatinine 0.80 0.50 - 1.10 mg/dL LAB CHEMISTRY METHOD 07/11/2025 5:30 PM [facility] eGFR 84 >=60 mL/min/1. 73m2 LAB CHEMISTRY METHOD 07/11/2025 5:30 PM [facility] Comment:Calculation based on the Chronic Kidney Disease Epidemiology Collaboration (CKD-EPI) equation refit without adjustment for race. BUN/Creatinine Ratio 7.5 LAB CHEMISTRY METHOD 07/11/2025 5:30 PM [facility] Calcium 9.6 8.5 - 10.5 mg/dL LAB CHEMISTRY METHOD 07/11/2025 5:30 PM [facility] AST (SGOT) 16 10 - 42 unit/L LAB CHEMISTRY METHOD 07/11/2025 5:30 PM [facility] ALT (SGPT) 30 10 - 60 unit/L LAB CHEMISTRY METHOD 07/11/2025 5:30 PM [facility] Alkaline Phosphatase 135(H) 42 - 121 unit/L LAB CHEMISTRY METHOD 07/11/2025 5:30 PM [facility] Total Protein 7.5 6.0 - 8.0 g/dL LAB CHEMISTRY METHOD 07/11/2025 5:30 PM EDT [facility] Albumin 4.0 3.2 - 5.0 g/dL LAB CHEMISTRY METHOD 07/11/2025 5:30 PM EDT [facility] Total Bilirubin 0.3 0.0 - 1.4 mg/dL LAB CHEMISTRY METHOD 07/11/2025 5:30 PM EDT [facility] Blood Venous blood specimen / Unknown Venipuncture / Unknown 07/11/2025 4:35 PM EDT 07/11/2025 4:46 PM EDT us Catrachita Kat MD LAB BLOOD ORDERABLES Final Resul t [facility] [address] [place] [address], [place] [phone] * XR Foot 3+ Views Left (06/18/2025 10:15 AM EDT) Anatomical Region Laterality Modality Lower Extremities, Foot Left Radiogra phic Imaging 06/18/2025 10:3 6 AM EDT Impressions 06/18/2025 10:37 AM EDT No foot fracture or dislocation. -------- FINAL REPORT -------- Dictated By: Leobardo Simpson Dictated Date: 06/18/2025 10:36 ET Assigned Physician: Leobardo Simpson Reviewed and Electronically Signed By: Leobardo Simpson Signed Date: 06/18/2025 10:37 ET Workstation ID: [id number] Transcribed By: Self Edit Transcribed Date: 06/18/2025 10:36 ET Narrative 06/18/2025 10:37 AM EDT INDICATION: Left fifth toe pain after injury 2 days ago FINDINGS: 3 views of the left foot were obtained. No prior studies available for comparison. No fracture or dislocation. No focal bony lesion. No soft tissue swelling, gas or radiopaque foreign. Mild degenerative changes. Procedure Note Leobardo Simpson MD - 06/18/2025 INDICATION: Left fifth toe pain after injury 2 days ago FINDINGS: 3 views of the left foot were obtained. No prior studiesavailable for comparison. No fracture or dislocation. No focal bony lesion. No soft tissue swelling, gas or radiopaque foreign. Mild degenerative changes. IMPRESSION: No foot fracture or dislocation. -------- FINAL REPORT -------- Dictated By: Leobardo Simpson Dictated Date: 06/18/2025 10:36 ET Assigned Physician: Leobardo Simpson Reviewed and Electronically Signed By: Leobardo Simpson Signed Date: 06/18/2025 10:37 ET Workstation ID: [id number] Transcribed By: Self Edit Transcribed Date: 06/18/2025 10:36 ET us Fazal Sandoval MD IMG XR PROCEDURES Final Res ult from Last 3 Months Insurance [facility] MEDICARE Member Subscriber Plan / Payer (Ef fective 2024-Present) Name:MAGDALENA MEJIA Relation to Subscriber:Self Name:Magdalena Mejia Payer ID:[id number] Group ID:[id number] Type:Not on file Address: [place] [address] [place] [address] Advance Directives Documents on File Type Date Recorded Patient Wellness Assistant Expl anation Advance Directives and Living Will 08/18/2025 11:09 AM Orin Mejia [facility] Care Proxy * Full Code - Default (Latest Code Status on File) Date Activated Date Inactivated Comments 08/15/2025 1:32 AM 08/15/2025 2:42 PM This is or anuja is used when code status has not been discussed with the patient, or code status is otherwise unknown/unconfirmed To update the patient's code status, place a code status order. Do not modify or discontinue any currently active code status orders. Healthcare Agents on File Name Relationship Healthcare Agent [facility] Communication Orin Mejia [facility] Health Care Agent Care Teams Lining Sewer Relationship Specialty Start Date End Date Pro Reed MD 11 Pradip Raza [place] PCP - General Internal Medicine 06/18/25
--- OUTSIDE RECORDS SUMMARY | 2025-09-08 11:20 | XMS_ITS | Clinical Summary ---
Author Organization [facility] Address [address] [address] Phone Care Team Providers Care Traveling Buyer Name Role Phone Vishnu Navarro MD Primary Care P rovider Allergies Active Allergy Reactions Criticality Noted Date Comments Atenolol Other (See Comments) 01/12/2010 tachycardia Lamotrigine Rash 01/12/2010 Macrolide Antibiotics Rash 01/12/2010 Morphine Mental Status Change 05/01/2013 Hallucinations Medications BUTALB/ACETAMINO PHEN/CAFFEINE (FIORICET ORAL) Take by mouth. Active TOPIRAMATE (TOPAMAX ORAL) Take by mouth. Active OMEPRAZOLE ORAL Take by mouth. Active ASPIRIN ORAL Take by mouth. Active METOPROLOL SUCCINATE ORAL Take by mouth. Active LISINOPRIL ORAL Take by mouth. Active ALBUTEROL SULFATE ORAL Take by mouth. Active QUETIAPINE FUMARATE (SEROQUEL ORAL) Take by mouth. Active OXCARBAZEPINE (TRILEPTAL ORAL) Take by mouth. Active TRAZODONE HCL (TRAZODONE ORAL) Take by mouth. Active LORATADINE ORAL Take by mouth. Active FLUTICASONE PROPIONATE (FLOVENT DISKUS INHL) Inhale into the lungs. Active FLUTICASONE PROPIONATE (FLONASE NASL) by Nasal route. Active WARFARIN SODIUM (COUMADIN ORAL) Take by mouth. Active LEVOTHYROXINE SODIUM (LEVOTHYROXINE ORAL) Take by mouth. Active TEMAZEPAM ORAL Take by mouth. Active PROMETHAZINE HCL (PROMETHAZINE ORAL) Take by mouth. 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 Osteoarthritis of knee 05/13/2013 Overview (12/06/2014): Osteoarthritis of knee Immunizations Immunization Administration Dates Next Due Influenza, Unspecified Formulation 08/28(Deferred: Other),01/14/2010(Deferred: Patient Decision) Pneumococcal polysaccharide PPSV23 08/28(Deferred: Other - does not meet criteria),01/14/2010(Deferred: Patient Decision) Family History Medical History Relation Comments Diabetes Father Relation Status Comments Father Social History Tobacco Use Types Packs/Day Years Used Date Smoking Tobacco: Never Alcohol Use Standard Drinks/Week Comments No 0 (1 standard drink = 0.6 oz pur e alcohol) Education Answer Date Recorded Are you interested in more education? Not on candace e 02/19/2023 Are you concerned about learning? Not on file 02/19/2023 No 02/19/2023 No 02/19/2023 Digital Access Answer Date Recorded No 03/12/2023 No 03/12/2023 No 03/12/2023 Reliable internet access at home? Not on file 03/12/2023 Device with a working camera? Not on file Comments Unknown Sex and Gender Information Value Date Recorded Sex Assigned at Not on file Legal Sex Female 6:29 PM EST Gender Identity Not on file Sexual Orientation Not on file Last Filed Vital Signs Vital Sign Reading Time Taken Comments Blood Pressure - - Pulse - - Temperature 36.3 C (97.4 F) 05/14/2015 1:03 PM EDT Respiratory Rate - - Oxygen Saturation - - Inhaled Oxygen Concentration - - Weight 115.2 kg (254 lb) 05/14/2015 1:03 PM EDT Height 168.9 cm (5' 6.5 ) 05/14/2015 1:03 PM EDT Body Mass Index 40.38 05/14/2015 1:03 PM EDT Plan of Treatment Health Maintenance Due Date Last Done Comments Adult Td,Tdap Booster 1965 LIPID PANEL 1965 TSH LEVEL 1965 DEPRESSION SCREENING 1977 SMOKING Hx and SMOKELESS TOBACCO SCREENING 1978 HEPATITIS C SCREENING 1983 HIV ONE-TIME SCREENING (18-65 YEARS) 1983 PAP SMEAR 1986 MAMMOGRAM 2005 COLOGUARD 2010 COLONOSCOPY 2010 COLORECTAL CANCER SCREENING 2010 FIT TEST 2010 FOBT 2010 SIGMOIDOSCOPY 2010 VIRTUAL COLONOSCOPY 2010 CREATININE LEVEL 08/27/2011 08/27/2010, 11/2009, 01/14/2010, Additional history exists POTASSIUM LEVEL 08/27/2011 08/27/2010, 0411/2009, 01/14/2010, Additional history exists PNEUMOCOCCAL VACCINES (50+ years) (1 of 1 - PCV) 2015 ZOSTER VACCINES (2 of 2) 11/25/2019 09/30/2019 INFLUENZA VACCINE (#1) 2025 08/13/2020 COVID-19 VACCINE (3 - season) 2025 03/04/2021, 02/04/2021 RSV VACCINE (1 - 1-dose 75+ series) 01/17/2040 HEPATITIS A VACCINES Aged Out No long er eligible based on patient's age to complete this topic HIB VACCINES Aged Out No longer eligi ble based on patient's age to complete this topic IPV VACCINES Aged Out No longer eligi ble based on patient's age to complete this topic MENINGOCOCCAL VACCINES (ACWY) Aged Out No longer eligible based on patient's age to complete this topic MENINGOCOCCAL VACCINES (B) Aged Out N o longer eligible based on patient's age to complete this topic Medical Devices Not on file Procedures Procedure Name Priority Date/Time Associated Diagnosis Comments HISTORICAL LAB Routine 08/27/2010 9:32 AM EST from Last 3 Months or Most Recently Relevant to Health Maintenance Results * (ABNORMAL) Historical Lab (08/27/2010 9:32 AM EST) GLUCOSE 102(A) 70 - 100 mg/dL [facility] UREA N 7 6 - 23 mg/dL [facility] CREATININE 0.88 0.50 - 1.20 mg/dL [facility] eGFR >=60 [facility] Comment: (Abnormal if <60 mL/min/1.73m2 If patient is black, multiply by 1.21) SODIUM 141 136 - 145 mmol/L [facility] POTASSIUM 3.6 3.4 - 5.0 mmol/L [facility] CHLORIDE 107 98 - 107 mmol/L [facility] TOTAL CO2 21(A) 22 - 31 mmol/L [facility] CALCIUM 9.8 8.8 - 10.4 mg/dL [facility] ANION GAP 13 5 - 17 mmol/L [facility] 08/27/2010 9:32 AM EST Comment:BLOOD us Remy Ortiz MD LAB BLOOD ORDERABLES Final Resul t [address] [id number] from Last 3 Months or Most Recently Relevant to Health Maintenance Insurance MEDICARE PART A & B [facility] MEDICARE PART A & B HEALTH MEDICARE PART A [place] [id number] MEDICARE PART A [place] [phone] MEDICARE PART A [place] [facility] [facility] [place] [facility] [place] [facility] Care Teams Traveling Buyer Relationship Specialty Start Date End Date Vishnu Navarro MD [address] [place] [id number] PCP - General 02/19/15 Additional Source Comments The information contained in this document represents components of the legal health record. It is not the complete legal health record.[facility]
== END 2025-09-08 10:32 | disposition home or self-care (01) ==
LOC: HO.HSM 09:41
PROVIDERS: PCP Physician Assistant Medical; Visit Provider Registered Nurse
DX: G43.909 Migraine, unspecified, not intractable, without status migrainosus (principal); E11.42 Type 2 diabetes mellitus with diabetic polyneuropathy
CPT/HCPCS: 99214

== ENCOUNTER → 2025-09-08 09:41 | Outpatient (BNVA) | payer OTHER, SELFPAY | PROVIDERS: PCP Physician Assistant Medical; Visit Provider Registered Nurse | DX: G43.909 Migraine, unspecified, not intractable, without status migrainosus (principal); E11.42 Type 2 diabetes mellitus with diabetic polyneuropathy | CPT/HCPCS: 99212 ==